=== PATIENT | male | born 1995 | race Caucasian/White ===

== ENCOUNTER 2023-08-06 16:17 | Emergency (ER) | payer OTHER, SELFPAY ==
[2023-08-06 16:28] VITALS: BP 148/97; PULSE 77; RESP 16; TEMP 37.3; O2SAT 99
--- NOTE | 2023-08-06 18:03 | ED.UPPEXIN ---
HPI - Extremity Injury (Upper) General Chief Complaint: Extremity Injury, Upper Stated Complaint: Right Arm Pain Time Seen by Provider: 08/06/23 18:03 Source: patient Mode of arrival: ambulatory Limitations: no limitations History of Present Illness HPI narrative: 28-year-old male presented for complaint of right elbow pain for 3 weeks Has had intermittent swelling to the elbow. Endorses decreased range of motion to the elbow with flexion due to pain. States while welding today the elbow locked up and felt like a noodle which resolved quickly. Also States lifting his daughter causes clicking. Denies known injury. Has taken Tylenol and applied pain creams. denies numbness, tingling, weakness of the hand or extremity. Related Data Allergies Allergy/AdvReac Type Severity Reaction Status Date / Time No Known Allergies Allergy Unverified 05/20/18 05:23 Review of Systems Review of Systems: CONSTITUTIONAL: Denies body aches, fever, chills CARDIOVASCULAR: Denies chest pain, palpitations, or edema. RESPIRATORY: Denies cough or dyspnea. GASTROINTESTINAL: Denies abdominal pain, nausea, vomiting, or diarrhea. SKIN: Denies rash, itching, or wounds. MUSCULOSKELETAL: Reports right elbow pain Denies back pain, joint pain, or myalgia. NEUROLOGIC: Denies headache, numbness, tingling, or weakness. All systems reviewed & are unremarkable except as noted in HPI and below PMFSH Family History Family History Other Diabetes mellitus Hypertension Social History Social History Smoking status: Never smoker Alcohol intake: never Comments At time of signature, I have reviewed and agree with nursing past medical, surgical, social and family history unless otherwise noted. Please see nursing chart for further information. There is no relevant family history pertinent to the presenting complaint Exam Narrative: GENERAL: Well-appearing, well-nourished, and in no acute distress. CHEST: Speaks in full sentences. No respiratory distress. HEART: Regular rate and rhythm. Normal and equal peripheral pulses. EXTREMITIES: slightly limited range of motion of right elbow with flexion due to subjective pain with movement. Tender to lateral olecranon. right upper extremity has normal strength and sensation, No swelling or ecchymosis, No open wounds, skin tenting, or obvious deformity; alignment normal, pulse palpable and equal bilaterally, skin warm, dry, pink. Capillary refill less than 3 seconds. SKIN: Warm, dry, no rash. NEURO: Alert and oriented x3. PSYCH: Normal mood and affect Course Course Emergency Course: Patient is aware of diagnosis, understands and agrees to treatment plan. Anticipatory guidance given. Patient agrees to follow-up as directed and is aware of reasons to seek care at the emergency department. Portions of this record may have been created with voice recognition software Level of Care: Express Care Visit Vital Signs Vital signs: Vital Signs Temperature 99.2 F 08/06/23 16:28 Pulse Rate 77 08/06/23 16:28 Respiratory Rate 16 08/06/23 16:28 Blood Pressure 148/97 H 08/06/23 16:28 Pulse Oximetry 99 08/06/23 16:28 Oxygen Delivery Room Air 08/06/23 16:28 Temperature 99.2 F 08/06/23 16:28 Pulse Rate 77 08/06/23 16:28 Respiratory Rate 16 08/06/23 16:28 Blood Pressure 148/97 H 08/06/23 16:28 Pulse Oximetry 99 08/06/23 16:28 Oxygen Delivery Room Air 08/06/23 16:28 Reviewed MDM - Extremity Injury (Upper) MDM Narrative Medical decision making narrative: Discussed physical exam findings. Advised supportive measures and signs/symptoms to go to the ER. Pt is appropriate for outpt treatment and f/u. Differential Diagnosis Differential diagnosis: Likely other (osteoarthritis, elbow dislocation, septic bursitis, epicondylitis, biceps tendon rupture) Dis
== END 2023-08-06 18:16 | disposition home or self-care (01) ==
PROVIDERS: Emergency Provider Nurse Practitioner Family
DX: M25.521 Pain in right elbow (principal)
CPT/HCPCS: 99213; G0463